=== PATIENT | female | born 1975 | race Caucasian/White ===

== ENCOUNTER 2016-10-18 10:35 | Outpatient (RCR) | payer OTHER | END 2016-10-21 | LOC: M PT 10:35 | PROVIDERS: ATTEND Internal Medicine | DX: Z51.89 Encounter for other specified aftercare (principal); M25.562 Pain in left knee ==

== ENCOUNTER 2016-11-20 10:00 | Outpatient (RCR) | payer OTHER | END 2016-11-21 | LOC: M PT 10:00 | PROVIDERS: ATTEND Internal Medicine | DX: Z51.89 Encounter for other specified aftercare (principal); M25.562 Pain in left knee ==

== ENCOUNTER 2016-12-20 07:44 | Outpatient (RCR) | payer OTHER | END 2016-12-21 | LOC: M PT 07:44 | PROVIDERS: ATTEND Internal Medicine | DX: Z51.89 Encounter for other specified aftercare (principal); M25.562 Pain in left knee ==

== ENCOUNTER → 2017-01-04 | Outpatient (CLI) | payer OTHER ==
--- NOTE | 2017-01-04 12:22 | REP ---
FOCUSED RIGHT BREAST FOLLOW UP SONOGRAPHY: HISTORY: Status post surgical removal of benign fibroadenoma right breast 9-o'clock position October 2015. The patient referred for follow-up scan. COMPARISON: Most recent postoperative comparisons sonography is from March 26, 2016. FINDINGS: The right breast scanned from 8-o'clock position to the 10-o'clock position. Heterogeneous fibroglandular background echotexture is seen. At the 9-o'clock position in the right breast, today's examination demonstrates an oval shaped solid lesion with its long axis parallel to the skin. It measures 1.0 x 0.5 x 0.8 cm. It is hypoechoic but solid consistent with a recurrent fibroadenoma. IMPRESSION: 1.0 x 0.5 x 0.8 cm solid hypo echoic area at 9-o'clock position consistent with recurrent fibroadenoma. This is nonspecific. Correlation should be made with original histology report of the excisional biopsy. Signed by Pankaj Denney MD 01/04/2017 12:32 P
== END ==
LOC: M RAD 10:24
PROVIDERS: ATTEND Internal Medicine
DX: N60.39 Fibrosclerosis of unspecified breast (principal)

== ENCOUNTER 2017-01-10 16:00 | Outpatient (RCR) | payer OTHER | END 2017-01-15 17:56 | disposition home or self-care (01) | LOC: M PT 16:00 | PROVIDERS: ATTEND Internal Medicine | DX: Z51.89 Encounter for other specified aftercare (principal); M25.562 Pain in left knee ==